=== PATIENT | male | born 1960 | race Caucasian/White ===

== ENCOUNTER 2018-12-20 11:03 | Day surgery (SDC) | payer MEDICARE, BC ==
[2018-12-20] MEDS ORDERED: PROPOFOL 10 MG/ML VIAL IV ONE (11:04)
[2018-12-20] MEDS ORDERED: LIDOCAINE 2% MDV (20MG/ML) 20ML VIAL IV ONE (11:04)
--- NOTE | 2018-12-20 15:20 | Operative Note ---
OPERATION: COLONOSCOPY with cold snare and hot snare polypectomies. PREOPERATIVE DIAGNOSIS: Colon cancer screening, subsequent exam, last exam 10 years ago. POSTOPERATIVE DIAGNOSIS: Multiple colon polyps. PROCEDURE: After informed consent was obtained from the patient, he was placed in the left lateral decubitus position in the endoscopy suite, sedated and monitored by the department of anesthesia. Digital rectal examination was unremarkable. A well-lubricated [id number] colonoscope was inserted into the rectum and advanced to the cecum. The cecum and cecal bulb were unremarkable. Preparation quality was good to excellent. The ascending colon revealed 2 sessile polyps ranging in size from 5-6 mm each removed with a cold snare and retrieved. The transverse colon revealed another 5-6 mm polyp removed with a cold snare and retrieved. The descending colon revealed a 5 mm polyp which was removed with a cold snare and retrieved. In the sigmoid colon, there was a pedunculated polyp which was approximately 7 mm and removed with a polypectomy snare and ERBE EndoCut current. No bleeding was noted at the stalk site. The polyp was retrieved. There was another 5-6 mm sessile polyp removed with a cold snare. The rectum was unremarkable in forward and J-turn views. The endoscope was straightened, the rectal ampulla deflated, and the endoscope was removed. RECOMMENDATIONS: The patient will require repeat exam in 1-3 years pending tissue histology. He can resume his medications. As always, thank you for allowing me to participate in the healthcare of your patients. SAMY
== END 2018-12-20 13:15 | disposition home or self-care (01) ==
LOC: HOP 11:03
PROVIDERS: ATTEND Internal Medicine Gastroenterology
DX: Z12.11 Encounter for screening for malignant neoplasm of colon (principal); D12.2 Benign neoplasm of ascending colon; D12.4 Benign neoplasm of descending colon; D12.5 Benign neoplasm of sigmoid colon; D12.3 Benign neoplasm of transverse colon; I10 Essential (primary) hypertension; E11.9 Type 2 diabetes mellitus without complications